=== PATIENT | female | born 1985 | race African-American/Black ===

== ENCOUNTER 2020-05-22 08:11 | Emergency (ER) | payer MEDICAID ==
[~2020-05-22] VITALS: Ht 172.7 cm; Wt 89.8 kg
[2020-05-22 10:49] VITALS: BP 117/85
== END 2020-05-22 11:13 | disposition home or self-care (01) ==
LOC: ER 08:11
DX: U07.1 COVID-19 (principal); R19.7 Diarrhea, unspecified
CPT/HCPCS: 36415; 71045; 87426

== ENCOUNTER 2022-06-16 00:58 | Emergency (ER) | payer MEDICAID ==
[~2022-06-16] VITALS: Ht 172.7 cm; Wt 96.0 kg
[2022-06-16 00:58] VITALS: BP 111/67
[2022-06-16] MEDS ORDERED: CEPH-322 PO (01:28)
[2022-06-16 02:39] LABS: Urine Bacteria None Seen /hpf (None Seen)
[2022-06-16 02:40] LABS: Urine Blood 3+ /uL (Negative); Urine Specific Gravity 1.019 (1.001-1.035)
[2022-06-16 02:41] LABS: Urine WBC 3 /hpf (0 - 5)
== END 2022-06-16 03:47 | disposition home or self-care (01) ==
LOC: ER 01:01
DX: N61.0 Mastitis without abscess (principal); Z79.899 Other long term (current) drug therapy
CPT/HCPCS: 81001; 96372; 96374

== ENCOUNTER 2023-11-03 13:50 | Emergency (ER) | payer MEDICAID ==
[~2023-11-03] VITALS: Ht 172.7 cm; Wt 100.6 kg
[~2023-11-03 13:50] MED LIST: CEPH250C PO
[2023-11-03 14:13] VITALS: BP 128/73; PULSE 93; RESP 18; O2SAT 97
[2023-11-03 15:11] LABS: Urine Bacteria FEW /hpf (None Seen); Urine Blood 3+ /uL (Negative); Urine Clarity Turbid (Clear); Urine Color Light-Orange (Yellow); Urine Mucus FEW (None Seen); Urine Protein, UAD 1+ (Negative); Urine Specific Gravity 1.016 (1.001-1.035); Urine Urobilinogen Normal (Negative); Urine WBC 14 /hpf (0 - 5); Urine pH 5.5 (5.0-9.0)
[2023-11-03 17:41] LABS: Alanine Aminotransferase 14 U/L (7-40); Alkaline Phosphatase 94 U/L (46-116); Anion Gap 7 (5-15); Aspartate Aminotransferase 14 U/L (13-40); BUN/Creatinine Ratio 6.4 (10.0-20.0); Blood Urea Nitrogen 6 mg/dL (9-23); Calcium 9.5 mg/dL (8.7-10.4); Carbon Dioxide 24 mmol/L (20-30); Chloride 109 mmol/L (98-107); Glucose 98 mg/dL (74-106); Potassium 3.9 mmol/L (3.5-5.1); Sodium 140 mmol/L (136-145)
[2023-11-03 17:42] LABS: Bilirubin, Total 1.4 mg/dL (0.2-1.0); Total Protein 6.7 g/dL (5.7-8.2)
[2023-11-03 17:49] LABS: Basophils # (auto) 0.1 10 ^3/uL (0-0.2); Hemoglobin 12.3 g/dL (12.2-16.2); Monocytes # (auto) 0.8 10 ^3/uL (0-1.3); Neutrophils # (auto) 7.9 10 ^3/uL (1.6-8.6); Nucleated Red Blood Cells % 0.1 %
[2023-11-03 17:51] LABS: Basophils % (auto) 0.9 % (0.0-2.0); Eosinophils # (auto) 0.2 10 ^3/uL (0-0.8); Eosinophils % (auto) 1.6 % (0.0-7.0); Lymphocytes # (auto) 2.3 10 ^3/uL (0.4-5.4); Lymphocytes % (auto) 20.5 % (10.0-50.0); Mean Corpuscular Hemoglobin 26.5 pg (28.0-32.0); Mean Corpuscular Hgb Conc. 32.4 g/dL (32.0-36.0); Mean Corpuscular Volume 81.8 fL (80.0-100.0); Monocytes % (auto) 6.9 % (0.0-12.0); Neutrophils % (auto) 70.1 % (37.0-80.0); Red Blood Cells 4.65 10^6/uL (4.0-5.20); Red Cell Distribution Width 13.7 % (11.8-14.3); White Blood Cell 11.2 10^3/uL (4.4-10.8)
[2023-11-03 18:26] LABS: INR 1.03 (0.9-1.15); Partial Thromboplastin Time 30.5 SEC (24.5-34.5); Prothrombin Time 10.9 sec (9.3-11.8)
[2023-11-03] MEDS ORDERED: ACET500T58 PO (19:44)
[2023-11-03] MEDS ORDERED: CEPH500T PO (19:44)
[2023-11-03] MEDS: CEPHALEXIN 250 MG CAP PO ONE (20:45)
== END 2023-11-03 20:48 | disposition home or self-care (01) ==
LOC: ER 13:50
DX: O20.9 Hemorrhage in early pregnancy, unspecified (principal); R10.2 Pelvic and perineal pain; Z3A.10 10 weeks gestation of pregnancy; Z79.899 Other long term (current) drug therapy
CPT/HCPCS: 36415; 76801; 76817; 80053; 81001; 84702; 85025; 85610; 85730